=== PATIENT | female | born 1975 | race Caucasian/White ===

== ENCOUNTER 2016-10-28 14:24 | Emergency (ER) | payer OTHER ==
[~2016-10-28] VITALS: Ht 157.5 cm; Wt 65.0 kg
[2016-10-28 14:26] VITALS: BP 101/61; PULSE 97; RESP 17; TEMP 101.8; O2SAT 98
--- NOTE | 2016-10-28 14:44 | PD ---
Physical Exam Time Seen by Provider: 14:41 Narrative 41yo F c/o fever up to 103.5 with LUQ abd pain today. Abd aches x 1 week and though nothing of it. +dysuria. Denies vag dc, odor. Decreased appetite. Increased thirst. Patient seen in triage. VS reviewed. Awaiting bed placement. Data Data Last Documented VS Vital Signs Date Time Temp Pulse Resp B/P (MAP) Pulse Ox O2 Delivery O2 Flow Rate FiO2 10/28/16 14:26 101.8 97 17 101/61 (74) 98 MDM Supervised Visit with MERLENE: Sendy Sawyer Oct 28, 2016 14:44
[2016-10-28] MEDS ORDERED: SODIUM CHLORIDE 0.9% FLUSH 10 ML FLUSH IV FLUSH PRN (14:45)
[2016-10-28 15:39] LABS: AUTOMATED NEUTROPHIL # 9.5 TH/MM3 (1.8-7.7); BASOPHIL % 0.4 % (0.0-2.0); HEMATOCRIT 37.9 % (35.0-46.0); HEMO FLAGS DIFF FINAL; LYMPH % 10.5 % (9.0-44.0); LYMPHOCYTE # 1.3 TH/MM3 (1.0-4.8); MEAN CELL VOLUME 89.1 FL (80.0-100.0); MEAN CORPUSCULAR HEMOGLOBIN 29.8 PG (27.0-34.0); MEAN CORPUSCULAR HGB CONC 33.5 % (32.0-36.0); MONO % 11.5 % (0.0-8.0); NEUT % 77.6 % (16.0-70.0); PLATELET COUNT 189 TH/MM3 (150-450); RED BLOOD COUNT 4.26 MIL/MM3 (4.00-5.30); RED CELL DISTRIBUTION WIDTH 12.3 % (11.6-17.2); WHITE BLOOD COUNT 12.2 TH/MM3 (4.0-11.0)
[2016-10-28 15:42] LABS: BACTERIA, URINE MANY /hpf; BLOOD, URINE MOD (NEG); COMMENT (UR) CULTURE INDICATED; CULTURE IF INDICATED CULTURE INDICATED; GLUCOSE,URINE NEG (NEG); HYALINE CAST, URINE 2 /lpf (RARE); KETONE, URINE 10 mg/dL (NEG); MUCUS URINE FEW /lpf (OCC); NITRITE,URINE POS (NEG); SQUAMOUS EPITHELIAL CELL URINE 2 /hpf (0-5); TRANSITIONAL EPI CELLS, URINE 1 /hpf; URINE COLOR YELLOW (YELLW/STRAW)
[2016-10-28 15:48] LABS: APTT (PATIENT) 34.7 SEC (24.3-30.1)
[2016-10-28 16:03] LABS: ANION GAP 9 MEQ/L (5-15); AST (GOT) 33 U/L (15-37); BICARBONATE 22.2 MEQ/L (21.0-32.0); BLOOD UREA NITROGEN 15 MG/DL (7-18); CHLORIDE 103 MEQ/L (98-107); GLOMERULAR FILTRATION RATE 72 ML/MIN (>89); POTASSIUM 3.8 MEQ/L (3.5-5.1); SODIUM (NA) 134 MEQ/L (136-145)
[2016-10-28 16:05] LABS: ALKALINE PHOSPHATASE 58 U/L (45-117); ALT (GPT) 36 U/L (10-53); TOTAL BILIRUBIN ADULT 0.4 MG/DL (0.2-1.0)
--- NOTE | 2016-10-28 16:41 | PD ---
HPI Chief Complaint: Abdominal Pain Time Seen by Provider: 16:40 Travel History International Travel<30 days: No Contact w/Intl Traveler<30days: No Traveled to known affect area: No History of Present Illness HPI 41-year-old female presents the emergency department with one week history of intermittent lower abdominal pain on the left with some intermittent dysuria. Patient states in the last 2 days she develop fever, worsening pain in the left upper abdomen extending to the back. She has no nausea, vomiting, or diarrhea. No cough or shortness of breath. She denies vaginal symptoms of any kind at this time. She is allergic to acetaminophen and hydrocodone [facility] Past Medical History Medical History: Denies Significant Hx Tetanus Vaccination: < 5 Years Influenza Vaccination: Yes ?: Not LMP: IUD Past Surgical History Abdominal Surgery: Yes (VERTICAL SLEEVE, TUMMY TUCK) Cholecystectomy: Yes Gynecologic Surgery: Yes (ENDOMETRIOSIS) Social History Alcohol Use: No Tobacco Use: No Substance Use: No Allergies-Medications (Allergen,Severity, Reaction): Coded Allergies: acetaminophen (Verified Adverse Reaction, Severe, VOMITING, 10/28/16) hydrocodone (Verified Adverse Reaction, Severe, VOMITING, 10/28/16) Reported Meds & Prescriptions Reported Meds & Active Scripts Active Macrobid (Nitrofurantoin Monohydrate Macrocrystals) 100 Mg Capsule 100 Mg PO BID 7 Days Review of Systems Except as stated in HPI: all other systems reviewed are Neg General / Constitutional: Positive: Fever, Chills Eyes: No: Visual changes HENT: No: Headaches Cardiovascular: No: Chest Pain or Discomfort Respiratory: No: Shortness of Breath Gastrointestinal: Positive: Abdominal Pain, No: Nausea, Vomiting, Diarrhea Genitourinary: Positive: Frequency, Dysuria, Flank Pain Musculoskeletal: No: Pain Skin: No Rash Neurologic: No: Weakness Psychiatric: No: Depression Endocrine: No: Polydipsia Hematologic/Lymphatic: No: Easy Bruising Physical Exam Narrative GENERAL: Patient appears in no acute distress. SKIN: Warm and dry. Normal color. Normal turgor. HEAD: Atraumatic. Normocephalic. EYES: Pupils equal and round. No scleral icterus. No injection or drainage. ENT: No nasal bleeding or discharge. Mucous membranes pink and moist. Pharynx is clear. Airway is patent. NECK: Trachea midline. Supple. CARDIOVASCULAR: Regular rate and rhythm. RESPIRATORY: No accessory muscle use. Clear to auscultation. Breath sounds equal bilaterally. GASTROINTESTINAL: Abdomen soft, mild to moderate super pubic tenderness, nondistended. Hepatic and splenic margins not palpable. Patient has moderate left-sided CVA tenderness with percussion. MUSCULOSKELETAL: Extremities without clubbing, cyanosis, or edema. No obvious deformities. NEUROLOGICAL: Awake and alert. No obvious cranial nerve deficits. Motor grossly within normal limits. Five out of 5 muscle strength in the arms and legs. Normal speech. PSYCHIATRIC: Appropriate mood and affect; insight and judgment normal. Data Data Last Documented VS Vital Signs Date Time Temp Pulse Resp B/P (MAP) Pulse Ox O2 Delivery O2 Flow Rate FiO2 10/28/16 14:26 101.8 97 17 101/61 (74) 98 Orders Orders Complete Blood Count With Diff (10/28/16 14:44) Comprehensive Metabolic Panel (10/28/16 14:44) Lipase (10/28/16 14:44) Lactic Acid (10/28/16 14:44) Prothrombin Time / Inr (Pt) (10/28/16 14:44) Act Partial Throm Time (Ptt) (10/28/16 14:44) Urinalysis - C+S If Indicated (10/28/16 14:44) Iv Access Insert/Monitor (10/28/16 14:44) Sodium Chloride 0.9% Flush (Ns Flush) (10/28/16 14:45) Ed Urine Pregnancytest Poc (10/28/16 14:44) Blood Culture (10/28/16 14:44) Urine Culture (10/28/16 15:12) Ceftriaxone Inj (Rocephin Inj) (10/28/16 17:00) Nitrofurantoin Monohyd Macrocr (Macrobid (10/28/16 17:00) Labs Laboratory Tests Test 10/28/16 15:10 10/28/16 15:12 White Blood Count 12.2 TH/MM3 Red Blood Count 4.26 MIL/MM3 Hemoglobin 12.7 GM/DL Hematocrit 37.9 % Mean Corpuscular Volume 89.1 FL Mean Corpuscular Hemoglobin 29.8 PG Mean Corpuscular Hemoglobin Concent 33.5 % Red Cell Distribution Width 12.3 % Platelet Count 189 TH/MM3 Mean Platelet Volume 8.9 FL Neutrophils (%) (Auto) 77.6 % Lymphocytes (%) (Auto) 10.5 % Monocytes (%) (Auto) 11.5 % Eosinophils (%) (Auto) 0.0 % Basophils (%) (Auto) 0.4 % Neutrophils # (Auto) 9.5 TH/MM3 Lymphocytes # (Auto) 1.3 TH/MM3 Monocytes # (Auto) 1.4 TH/MM3 Eosinophils # (Auto) 0.0 TH/MM3 Basophils # (Auto) 0.0 TH/MM3 CBC Comment DIFF FINAL Differential Comment Prothrombin Time 11.0 SEC Prothromb Time International Ratio 1.0 RATIO Activated Partial Thromboplast Time 34.7 SEC Blood Urea Nitrogen 15 MG/DL Creatinine 0.88 MG/DL Random Glucose 106 MG/DL Total Protein 7.5 GM/DL Albumin 3.5 GM/DL Calcium Level 8.8 MG/DL Alkaline Phosphatase 58 U/L Aspartate Amino Transf (AST/SGOT) 33 U/L Alanine Aminotransferase (ALT/SGPT) 36 U/L Total Bilirubin 0.4 MG/DL Sodium Level 134 MEQ/L Potassium Level 3.8 MEQ/L Chloride Level 103 MEQ/L Carbon Dioxide Level 22.2 MEQ/L Anion Gap 9 MEQ/L Estimat Glomerular Filtration Rate 72 ML/MIN Lactic Acid Level 0.9 mmol/L Lipase 110 U/L Urine Color YELLOW Urine Turbidity HAZY Urine pH 6.0 Urine Specific [place] 1.028 Urine Protein 30 mg/dL Urine Glucose (UA) NEG mg/dL Urine Ketones 10 mg/dL Urine Occult Blood MOD Urine Nitrite POS Urine Bilirubin NEG Urine Urobilinogen LESS THAN 2.0 MG/DL Urine Leukocyte Esterase LARGE Urine RBC 6 /hpf Urine WBC /hpf Urine Squamous Epithelial Cells 2 /hpf Urine Transitional Epithelial Cells 1 /hpf Urine Bacteria MANY /hpf Urine Hyaline Casts 2 /lpf Urine Mucus FEW /lpf Microscopic Urinalysis Comment CULTURE INDICATED MDM Medical Decision Making Medical Screen Exam Complete: Yes Emergency Medical Condition: Yes Differential Diagnosis Left flank pain. Bowel nephritis. Urinary tract infection. Narrative Course Labs ordered in triage including CBC, CMP, and urinalysis. CBC shows slight leukocytosis, CMP is normal, and urinalysis shows obvious urinary tract infection with positive nitrites. Patient is given 1 g Rocephin IV. Patient be continued on Keflex 500 mg 4 times a day 7 days. Patient can take ibuprofen as needed for pain. Patient is to rest and push fluids and follow-up with her doctor in 1 week to ensure clearance. Diagnosis Primary Impression: Pyelonephritis Additional Impression: UTI (urinary tract infection) Qualified Codes: N30.00 - Acute cystitis without hematuria Referrals: Primary Care Physician Patient Instructions: General Instructions, Kidney Infection (ED) Departure Forms: Work Release Enter return to work date: Oct 30, 2016 Additional Instructions: CBC shows slight leukocytosis, CMP is normal, and urinalysis shows obvious urinary tract infection with positive nitrites. Patient is given 1 g Rocephin IV. Patient be continued on Keflex 500 mg 4 times a day 7 days. Patient can take ibuprofen as needed for pain. Patient is to rest and push fluids and follow-up with her doctor in 1 week to ensure clearance. Med/Other Pt SpecificInfo: Prescription(s) given Scripts Cephalexin (Keflex) 500 Mg Cap 500 MG PO Q6H for Infection for 7 Days, CAP 0 Refills Prov: Danita Piper MD 10/28/16 Disposition: 01 DISCHARGE HOME Condition: Stable Shlomo Orozco Oct 28, 2016 16:41
[2016-10-28] MEDS ORDERED: cefTRIAXone INJ 1,000 MG in SODIUM CHLORIDE 0.9% INJ 100 ML IV ONE (17:00)
[2016-10-28] MEDS ORDERED: NITROFURANTOIN MONOHYD MACROCR 100 MG CAP PO ONE (17:00)
[2016-10-28] MEDS ORDERED: MACR100C2 PO (17:51)
[2016-10-28] MEDS ORDERED: CEPH-460 PO (18:00)
--- NOTE | 2016-10-28 18:04 | PD ---
Data Data Last Documented VS Vital Signs Date Time Temp Pulse Resp B/P (MAP) Pulse Ox O2 Delivery O2 Flow Rate FiO2 10/28/16 14:26 101.8 97 17 101/61 (74) 98 Orders Orders Complete Blood Count With Diff (10/28/16 14:44) Comprehensive Metabolic Panel (10/28/16 14:44) Lipase (10/28/16 14:44) Lactic Acid (10/28/16 14:44) Prothrombin Time / Inr (Pt) (10/28/16 14:44) Act Partial Throm Time (Ptt) (10/28/16 14:44) Urinalysis - C+S If Indicated (10/28/16 14:44) Iv Access Insert/Monitor (10/28/16 14:44) Sodium Chloride 0.9% Flush (Ns Flush) (10/28/16 14:45) Ed Urine Pregnancytest Poc (10/28/16 14:44) Blood Culture (10/28/16 14:44) Urine Culture (10/28/16 15:12) Ceftriaxone Inj (Rocephin Inj) (10/28/16 17:00) Nitrofurantoin Monohyd Macrocr (Macrobid (10/28/16 17:00) Labs Laboratory Tests Test 10/28/16 15:10 10/28/16 15:12 White Blood Count 12.2 TH/MM3 Red Blood Count 4.26 MIL/MM3 Hemoglobin 12.7 GM/DL Hematocrit 37.9 % Mean Corpuscular Volume 89.1 FL Mean Corpuscular Hemoglobin 29.8 PG Mean Corpuscular Hemoglobin Concent 33.5 % Red Cell Distribution Width 12.3 % Platelet Count 189 TH/MM3 Mean Platelet Volume 8.9 FL Neutrophils (%) (Auto) 77.6 % Lymphocytes (%) (Auto) 10.5 % Monocytes (%) (Auto) 11.5 % Eosinophils (%) (Auto) 0.0 % Basophils (%) (Auto) 0.4 % Neutrophils # (Auto) 9.5 TH/MM3 Lymphocytes # (Auto) 1.3 TH/MM3 Monocytes # (Auto) 1.4 TH/MM3 Eosinophils # (Auto) 0.0 TH/MM3 Basophils # (Auto) 0.0 TH/MM3 CBC Comment DIFF FINAL Differential Comment Prothrombin Time 11.0 SEC Prothromb Time International Ratio 1.0 RATIO Activated Partial Thromboplast Time 34.7 SEC Blood Urea Nitrogen 15 MG/DL Creatinine 0.88 MG/DL Random Glucose 106 MG/DL Total Protein 7.5 GM/DL Albumin 3.5 GM/DL Calcium Level 8.8 MG/DL Alkaline Phosphatase 58 U/L Aspartate Amino Transf (AST/SGOT) 33 U/L Alanine Aminotransferase (ALT/SGPT) 36 U/L Total Bilirubin 0.4 MG/DL Sodium Level 134 MEQ/L Potassium Level 3.8 MEQ/L Chloride Level 103 MEQ/L Carbon Dioxide Level 22.2 MEQ/L Anion Gap 9 MEQ/L Estimat Glomerular Filtration Rate 72 ML/MIN Lactic Acid Level 0.9 mmol/L Lipase 110 U/L Urine Color YELLOW Urine Turbidity HAZY Urine pH 6.0 Urine Specific [place] 1.028 Urine Protein 30 mg/dL Urine Glucose (UA) NEG mg/dL Urine Ketones 10 mg/dL Urine Occult Blood MOD Urine Nitrite POS Urine Bilirubin NEG Urine Urobilinogen LESS THAN 2.0 MG/DL Urine Leukocyte Esterase LARGE Urine RBC 6 /hpf Urine WBC /hpf Urine Squamous Epithelial Cells 2 /hpf Urine Transitional Epithelial Cells 1 /hpf Urine Bacteria MANY /hpf Urine Hyaline Casts 2 /lpf Urine Mucus FEW /lpf Microscopic Urinalysis Comment CULTURE INDICATED MDM Supervised Visit with MERLENE: Yes Narrative Course The history, exam, and medical decision-making in the associated midlevel provider note were completed with my assistance. I reviewed and agree with the findings presented. I attest that I had a [id number] encounter with the patient on the same day, and personally performed and documented my assessment and findings in the medical record. *My assessment and Findings: This is a 41-year-old female who presents to the emergency department with abdominal pain, body aches and fever. She has a leukocytosis and evidence of a urinary tract infection. Her symptoms are consistent with pyelonephritis. She is young and otherwise healthy. She appears very well on exam. She is given a dose of IV ceftriaxone. I think she is safe for discharge but I did tell her that if her symptoms worsen she should' ve a low threshold to come back to the emergency department at which time we consider admission. Diagnosis Primary Impression: Pyelonephritis Additional Impression: UTI (urinary tract infection) Qualified Codes: N30.00 - Acute cystitis without hematuria Referrals: Primary Care Physician Patient Instructions: General Instructions, Kidney Infection (ED) Departure Forms: Work Release Enter return to work date: Additional Instruction: CBC shows slight leukocytosis, CMP is normal, and urinalysis shows obvious urinary tract infection with positive nitrites. Patient is given 1 g Rocephin IV. Patient be continued on Keflex 500 mg 4 times a day 7 days. Patient can take ibuprofen as needed for pain. Patient is to rest and push fluids and follow-up with her doctor in 1 week to ensure clearance. Scripts Cephalexin (Keflex) 500 Mg Cap 500 MG PO Q6H for Infection for 7 Days, CAP 0 Refills Prov: Danita Piper MD 10/28/16 Disposition: 01 DISCHARGE HOME Condition: Stable Danita Piper MD Oct 28, 2016 18:04
[2016-10-28 18:24] VITALS: BP 109/55
== END 2016-10-28 18:31 | disposition home or self-care (01) ==
LOC: NEPE 14:24
DX: N12 Tubulo-interstitial nephritis, not specified as acute or chronic (principal); N39.0 Urinary tract infection, site not specified; B96.20 Unspecified Escherichia coli [E. coli] as the cause of diseases classified elsewhere
CPT/HCPCS: 80053; 81001; 83605; 83690; 84703; 85025; 85610; 85730; 87040; 87077; 87086; 87186; 96374; 99284; J0696

== ENCOUNTER 2016-10-30 05:56 | Emergency (ER) | payer OTHER ==
[~2016-10-30] VITALS: Ht 157.5 cm; Wt 62.0 kg
[~2016-10-30 05:56] MED LIST: CEPH-460 PO
[2016-10-30 05:59] VITALS: BP 118/65; PULSE 89; RESP 16; TEMP 99.6; O2SAT 99
[2016-10-30 07:28] VITALS: BP 101/56; PULSE 60; RESP 17; TEMP 98.4; O2SAT 97
[2016-10-30 08:00] VITALS: RESP 18; O2SAT 97
[2016-10-30] MEDS ORDERED: SODIUM CHLORIDE 0.9% FLUSH 10 ML FLUSH IV FLUSH PRN (08:00)
--- NOTE | 2016-10-30 08:21 | PD ---
HPI . Left flank pain Chief Complaint: Abdominal Pain Time Seen by Provider: 07:58 Travel History International Travel<30 days: No Contact w/Intl Traveler<30days: No Traveled to known affect area: No History of Present Illness HPI Patient presents with persisting left flank pain. The patient reports that she was seen here on 10/28 and diagnosed with pyelonephritis. She was treated with Rocephin here and then discharged on Keflex. She states that she was given strict instructions to return if she was still having pain in 2 days. She states that she was running fever of about 101 prior to her presentation on the . She states that she is still running a low-grade fever but that it is markedly improved. So, symptoms are improved with Keflex. PFSH Past Medical History Medical History: Denies Significant Hx Tetanus Vaccination: < 5 Years Influenza Vaccination: Yes ?: Not LMP: IUD Past Surgical History Abdominal Surgery: Yes (VERTICAL SLEEVE, TUMMY TUCK) Cholecystectomy: Yes Gynecologic Surgery: Yes (ENDOMETRIOSIS) Social History Alcohol Use: No Tobacco Use: No Substance Use: No Allergies-Medications (Allergen,Severity, Reaction): Coded Allergies: hydrocodone (Verified Adverse Reaction, Severe, VOMITING, 10/30/16) Reported Meds & Prescriptions Reported Meds & Active Scripts Active Keflex (Cephalexin) 500 Mg Cap 500 Mg PO Q6H 7 Days Review of Systems Except as stated in HPI: all other systems reviewed are Neg General / Constitutional: Positive: Fever Genitourinary: Positive: Flank Pain Physical Exam Narrative GENERAL: The patient is sitting on the stretcher working on her computer. She is in no distress. SKIN: Warm and dry. HEAD: Atraumatic. Normocephalic. EYES: Pupils equal and round. ENT: No nasal bleeding or discharge. Mucous membranes pink and moist. NECK: Trachea midline. CARDIOVASCULAR: Regular rate and rhythm. RESPIRATORY: No accessory muscle use. GASTROINTESTINAL: Abdomen soft, non-tender, nondistended. Positive left CVA tenderness. MUSCULOSKELETAL: No obvious deformities. No edema. NEUROLOGICAL: Awake and alert. No obvious cranial nerve deficits. Motor grossly within normal limits. Normal speech. PSYCHIATRIC: Appropriate mood and affect; insight and judgment normal. Data Data Last Documented VS Vital Signs Date Time Temp Pulse Resp B/P (MAP) Pulse Ox O2 Delivery O2 Flow Rate FiO2 10/30/16 08:00 18 97 Room Air 10/30/16 07:28 98.4 60 Orders Orders Complete Blood Count With Diff (10/30/16 07:58) Ua Includes Microscopic (10/30/16 07:58) Iv Access Insert/Monitor (10/30/16 07:58) Ecg Monitoring (10/30/16 07:58) Oximetry (10/30/16 07:58) Sodium Chloride 0.9% Flush (Ns Flush) (10/30/16 08:00) Ct Abd/Pel W/O Iv Contrast (10/30/16 09:26) Labs Laboratory Tests Test 10/30/16 00:00 10/30/16 08:00 Urine Color YELLOW Urine Turbidity CLEAR Urine pH 6.0 Urine Specific [place] 1.025 Urine Protein NEG mg/dL Urine Glucose (UA) NEG mg/dL Urine Ketones NEG mg/dL Urine Occult Blood NEG Urine Nitrite NEG Urine Bilirubin NEG Urine Urobilinogen LESS THAN 2.0 MG/DL Urine Leukocyte Esterase NEG Urine RBC 4 /hpf Urine WBC 1 /hpf Urine Squamous Epithelial Cells 1 /hpf White Blood Count 12.0 TH/MM3 Red Blood Count 4.04 MIL/MM3 Hemoglobin 12.2 GM/DL Hematocrit 36.5 % Mean Corpuscular Volume 90.2 FL Mean Corpuscular Hemoglobin 30.1 PG Mean Corpuscular Hemoglobin Concent 33.4 % Red Cell Distribution Width 12.1 % Platelet Count 219 TH/MM3 Mean Platelet Volume 8.9 FL Neutrophils (%) (Auto) 71.2 % Lymphocytes (%) (Auto) 17.1 % Monocytes (%) (Auto) 10.9 % Eosinophils (%) (Auto) 0.4 % Basophils (%) (Auto) 0.4 % Neutrophils # (Auto) 8.5 TH/MM3 Lymphocytes # (Auto) 2.0 TH/MM3 Monocytes # (Auto) 1.3 TH/MM3 Eosinophils # (Auto) 0.1 TH/MM3 Basophils # (Auto) 0.1 TH/MM3 CBC Comment DIFF FINAL Differential Comment MDM Medical Decision Making Medical Screen Exam Complete: Yes Emergency Medical Condition: Yes Medical Record Reviewed: Yes (her urine culture from 10/28 is positive for gram- negative rods. Blood cultures were negative.) Differential Diagnosis Differential diagnosis of flank pain includes but is not limited to kidney stone , pyelonephritis, musculoskeletal pain, PE Narrative Course Patient presents for recheck of pyelonephritis. I have ordered a CBC and repeat UA. CBC Diagram 10/30/16 08:00 UA>>neg nitrite, neg LE, 4 RBCs, ! WBC, no bact. White blood count is still elevated but her urinalysis is markedly improved. She did not have any imaging done when she was here 2 days ago. I will do a CT for kidney stone prior to disposition. CT neg. will d/c Diagnosis Primary Impression: Pyelonephritis Patient Instructions: General Instructions, Urinary Tract Infection in Women ( [place]) Additional Instructions: Continue Keflex. Disposition: 01 DISCHARGE HOME Condition: Stable Chantel King MD Oct 30, 2016 08:21
[2016-10-30 08:29] LABS: AUTOMATED NEUTROPHIL # 8.5 TH/MM3 (1.8-7.7); BASOPHIL # 0.1 TH/MM3 (0-0.2); BASOPHIL % 0.4 % (0.0-2.0); EOSINOPHIL # 0.1 TH/MM3 (0-0.4); EOSINOPHIL % 0.4 % (0.0-4.0); HEMATOCRIT 36.5 % (35.0-46.0); HEMO FLAGS DIFF FINAL; LYMPH % 17.1 % (9.0-44.0); MEAN CELL VOLUME 90.2 FL (80.0-100.0); MEAN CORPUSCULAR HEMOGLOBIN 30.1 PG (27.0-34.0); MEAN CORPUSCULAR HGB CONC 33.4 % (32.0-36.0); MONO % 10.9 % (0.0-8.0); NEUT % 71.2 % (16.0-70.0); PLATELET COUNT 219 TH/MM3 (150-450); RED BLOOD COUNT 4.04 MIL/MM3 (4.00-5.30); RED CELL DISTRIBUTION WIDTH 12.1 % (11.6-17.2)
[2016-10-30 08:47] LABS: BLOOD, URINE NEG (NEG); GLUCOSE,URINE NEG (NEG); KETONE, URINE NEG (NEG); NITRITE,URINE NEG (NEG); SQUAMOUS EPITHELIAL CELL URINE 1 /hpf (0-5); URINE COLOR YELLOW (YELLW/STRAW)
--- NOTE | 2016-10-30 09:57 | RADRPT ---
EXAM DATE/TIME: 10/30/2016 09:37 [facility] COMPARISON: No previous studies available for comparison. INDICATIONS : Left flank pain. ORAL CONTRAST: No oral contrast ingested. RADIATION DOSE: 5.88 CTDIvol (mGy) MEDICAL HISTORY : Endometriosis. SURGICAL HISTORY : Fusion, lumbar. Cholecystectomy. ENCOUNTER: Initial ACUITY: 2 days PAIN SCALE: 5/10 LOCATION: Left flank TECHNIQUE: Volumetric scanning of the abdomen and pelvis was performed. Using automated exposure control and ad justment of the mA and/or kV according to patient size, radiation dose was kept as low as reasonably achievable to obtain optimal diagnostic quality images. DICOM format image data is available electro nically for review and comparison. The lack of IV contrast limits the diagnosis for certain organ pat hology. FINDINGS: LOWER LUNGS: The visualized lower lungs are clear. LIVER: Homogeneous density without lesion. There is no dilation of the biliary tree. No gallbladder. SPLEEN: Normal size without lesion. PANCREAS: Within normal limits. KIDNEYS: Normal in size and shape. There is no mass, stone, or hydronephrosis. The ureters are nondilated. ADRENAL GLANDS: Within normal limits. VASCULAR: There is no aortic aneurysm. BOWEL/MESENTERY: The stomach, small bowel, and colon demonstrate no acute abnormality. There is no free intraperitone al air or fluid. The appendix is unremarkable. No inflammatory changes. There is stool throughout the colon. ABDOMINAL WALL: Within normal limits. RETROPERITONEUM: There is no lymphadenopathy. BLADDER: No wall thickening or mass. No stones REPRODUCTIVE: Within normal limits. IUD in the uterus. INGUINAL: There is no lymphadenopathy or hernia. MUSCULOSKELETAL: Evidence of previous lumbar spinal surgery with fusion at L4-5. CONCLUSION: 1. No calcified renal stones or hydronephrosis. 2. IUD in the uterus. Jaime Lerma MD on October 30, 2016 at 9:53 Board Certified Radiologist. This report was verified electronically.
== END 2016-10-30 11:49 | disposition home or self-care (01) ==
LOC: NEPE 05:56
DX: N12 Tubulo-interstitial nephritis, not specified as acute or chronic (principal)
CPT/HCPCS: 74176; 81001; 85025; 99284